=== PATIENT | male | born 1950 ===

== ENCOUNTER 2018-05-13 05:58 | Day surgery (SDC) | payer OTHER ==
[~2018-05-13 05:58] MED LIST: AMANTADINE100 M1; ATIVAN1 M1; PAXIL40 MG; RESTORIL15 MG; SINEMET 25-2501 EACH PO
== END 2018-05-13 09:59 | disposition home or self-care (01) ==
LOC: AMB-ENDOS 05:58
DX: K94.23 Gastrostomy malfunction (principal); R13.14 Dysphagia, pharyngoesophageal phase; G20 Parkinson's disease